=== PATIENT | female | born 1940 | race Caucasian/White ===

== ENCOUNTER 2016-11-18 14:13 | Emergency (ER) | payer OTHER ==
--- NOTE | 2016-11-18 16:18 | EDPHY ---
H & P Stated Complaint: L groin/leg pain for several weeks, From [place]. Time Seen by Provider: 11/18/16 16:08 - Personal History Current Tetanus/Diphtheria Vaccine: Unsure Current Tetanus Diphtheria and Acellular Pertussis (TDAP): Unsure - Medical/Surgical History Hx Asthma: No Hx Chronic Respiratory Disease: Yes Hx Diabetes: No Hx Cardiac Disease: No Hx Renal Disease: No Hx Cirrhosis: No Hx Alcoholism: No Hx HIV/AIDS: No Hx Splenectomy or Spleen Trauma: No Other PMH: Chronic back issues, with nerve ablation, HTN, tonsillectomy, D&C, Cholecystectomy-sepsis, bronchitis, CÉSAR Constitutional: Initial Vital Signs Temperature (C) 36.8 C 11/18/16 14:20 Heart Rate 76 11/18/16 14:20 Respiratory Rate 18 11/18/16 14:20 Blood Pressure 171/87 H 11/18/16 14:20 O2 Sat (%) 94 11/18/16 14:20 O2 Delivery Mode Room Air Allergies/Adverse Reactions: Beta-Blockers (Beta-Adrenergic Bloc Allergy (Severe, Verified 11/18/16 14:25) Hypotension ciprofloxacin Allergy (Intermediate, Verified 11/18/16 14:25) Edema of Extremities Home Medications: Medication Instructions Recorded Aldactone 11/18/16 Aspirin 11/18/16 Cozaar 11/18/16 Ferrous Sulfate 11/18/16 Foltx Tablet 11/18/16 Magnesium 11/18/16 Tramadol HCl 11/18/16 Medical Decision Making ED Course/Re-evaluation: CHIEF COMPLAINT: Left groin pain with radiculopathy HISTORY OF PRESENT ILLNESS: The patient is a 76 y/o female arriving with her family complaining of intermittent radiating left groin pain for the last 4 weeks. She has a history of spinal surgery and has chronic low back pain. Her last spinal MRI 5-6 weeks ago indicated she may have some impingement at L2. She cannot identify obvious precipitating causes for her current left groin pain. Her pain is aggravated by sitting, transitioning to a standing position, and lifting her leg. She has associated radiculopathy that extends down to her left ankle and sometimes associated with tingling. She uses Tramadol for pain, which has helped significantly and allowed her to walk into the ED alone. She is scheduled to see her spinal specialist on Tuesday, 5 days from now. She denies incontinence, saddle anesthesia, weakness, numbness, fever, dyspnea, chest pain, calf pain or swelling. She notes she fell onto her left russell while traveling in her RV recently, but her pain began a few weeks prior to that fall. REVIEW OF SYSTEMS: A 10 point review of systems was performed and is negative with the exception of the elements mentioned in the history of present illness. PHYSICAL EXAM: HR, BP 171/87 in triage, O2 Sat, RR. Temp noted General Appearance: Alert, well hydrated, appropriate, and non-toxic appearing. Head: Atraumatic without scalp tenderness or obvious injury Eyes: Pupils equal, round, reactive to light and accommodation, EOMI, no trauma , no injection. Nose: Atraumatic, no rhinorrhea, clear. Throat: Mucus membranes moist. Neck: Supple Respiratory: No retractions, no distress, no wheezes, and no accessory muscle use. Lungs are clear to auscultation bilaterally. Cardiovascular: Regular rate and rhythm, no murmurs, rubs, or gallops. Left dorsalis pedis pulse intact. Good capillary refill all extremities. Gastrointestinal: Abdomen is soft, non-tender, non-distended, no masses, no rebound, no guarding, no peritoneal signs. Musculoskeletal: Normal active ROM of all extremities, atraumatic. Complains of pain with left straight leg raise. Neurological: Alert, appropriate, and interactive. Nonfocal neuro exam. Skin: No rashes, good turgor, no nodules on palpation. Ecchymosis to left russell. PAST MEDICAL HISTORY: Spinal stenosis, scoliosis, degenerative disc disease, receives spinal injections, hypertension PAST SURGICAL HISTORY: L3-L5 spinal surgery SOCIAL HISTORY: Visiting from [place]. Family at bedside DIFFERENTIAL DIAGNOSIS: The differential diagnosis for the patient's back pain and radiculopathy included but was not limited to musculoskeletal pain, epidural abscess, herniated disk, spinal fracture, and intra-abdominal causes including urinary system. MEDICAL DECISION MAKING: This is a 76 y/o female who presents with a 4-week history of intermittent left groin pain with radiculopathy to her ankle in the setting of significant spinal disease history and chronic low back pain. She is neurovascularly intact on exam. Her pain is not reproducible with palpation, but is exacerbated by movement. No indication for imaging at this time as she recently had an MRI that showed possible impingement around L2. Plan to treat symptoms with Medrol and OxyIR. She is already scheduled to see her spinal specialist in 5 days and I have advised her to keep this appointment without fail. Strict return precautions given. She and her family are comfortable with this plan. Departure - Departure Disposition: Home, Routine, Self-Care Clinical Impression: Lumbar radiculopathy, chronic Condition: Good Instructions: Lumbar Radiculopathy (ED) Additional Instructions: 1. Take OxyIR as prescribed when needed for severe pain. 2. Use Medrol as prescribed. 3. Follow up with your spinal specialist upon your return home without fail. 4. Return to the nearest Emergency Department if you develop weakness, numbness around your genitals, incontinence, shortness of breath, chest pain, or other worsening of condition. Referrals: JANI LEWIS [Other] - As per Instructions Report Scribed for: Petr Thacker Report Scribed by: Marilee Cobos Date of Report: 11/18/16 Time of Report: 16:25
[2016-11-18 17:01] VITALS: BP 168/69; PULSE 66; RESP 16; TEMP 98.1; O2SAT 92
== END 2016-11-18 17:01 | disposition home or self-care (01) ==
DX: M54.16 Radiculopathy, lumbar region (principal); I10 Essential (primary) hypertension; Z79.82 Long term (current) use of aspirin